=== PATIENT | female | born 1990 | race Caucasian/White ===

== ENCOUNTER 2021-09-17 10:15 | Emergency (ER) | payer OTHER ==
[2021-09-18 15:40] LABS: SARS-CoV-2 PCR by NAA Not Detected (NotDetected)
== END 2021-09-17 11:50 | disposition home or self-care (01) ==
LOC: CSHERS 10:15
DX: O99.513 Diseases of the respiratory system complicating pregnancy, third trimester (principal); J18.9 Pneumonia, unspecified organism; Z3A.31 31 weeks gestation of pregnancy; Z20.822 Contact with and (suspected) exposure to COVID-19
CPT/HCPCS: 99284; U0003; U0005

== ENCOUNTER 2021-10-26 09:26 | Outpatient (CLI) | payer OTHER ==
[2021-10-26 21:47] LABS: SARS-CoV-2 PCR by NAA Not Detected (NotDetected)
== END 2021-10-26 09:27 | disposition home or self-care (01) ==
LOC: CSHLAB 09:26
PROVIDERS: ATTEND Obstetrics & Gynecology
DX: Z20.822 Contact with and (suspected) exposure to COVID-19 (principal)
CPT/HCPCS: U0003; U0005

== ENCOUNTER 2021-10-26 10:48 | Inpatient (IN) | payer OTHER ==
[2021-10-26] MEDS ORDERED: Lactated Ringer's 1,000 ML IV SCH (12:30)
[2021-10-26] MEDS ORDERED: Ondansetron PF 4 MG/2 ML Vial IVP PRN (12:30)
[2021-10-26] MEDS ORDERED: Promethazine HCl 25 MG/ML VIAL IM PRN (12:30)
[2021-10-26] MEDS ORDERED: Zolpidem Tartrate 5 MG TAB PO PRN (12:30)
[2021-10-26] MEDS ORDERED: Docusate 100 MG CAP PO PRN (12:30)
[2021-10-26] MEDS ORDERED: hydrALAZINE 20 MG/ML VIAL SLOW IVP PRN (12:30)
[2021-10-26] MEDS ORDERED: Misoprostol 200 MCG TAB PR PRN (12:30)
[2021-10-26] MEDS ORDERED: Lidocaine 1% (PF) 30 ML VIAL SC PRN (12:30)
[2021-10-26] MEDS ORDERED: Diphenoxylate HCl/Atropine Tablet PO PRN ×2 (12:30)
[2021-10-26] MEDS ORDERED: Methylergonovine 0.2 MG/ML VIAL IM PRN (12:30)
[2021-10-26] MEDS ORDERED: HYDROcodone/Acetaminophen 5/325 mg Tablet PO PRN (12:30)
[2021-10-26] MEDS ORDERED: Carboprost 250 MCG/ML AMP IM PRN (12:30)
[2021-10-26] MEDS ORDERED: Ibuprofen 800 MG TAB PO PRN (12:30)
[2021-10-26] MEDS ORDERED: NS w/ Oxytocin 30 units 500 ML IV SCH ×2 (12:30)
[2021-10-26] MEDS ORDERED: Acetaminophen 500 MG TAB PO PRN (12:30)
[2021-10-26] MEDS: Misoprostol 200 MCG TAB PO PRN ×2 (13:13→17:17)
[2021-10-26 13:36] LABS: Hemoglobin 12.6 g/dL (12.0-15.5); Mean Corpuscular HGB CONC 33.6 g/dL (32.0-36.0); Mean Corpuscular Hemoglobin 28.9 pg (27.0-33.0); Mean Platelet Volume 11.4 fl (7.4-10.4); Platelet Count 224 10x3/uL (150-450); RBC Distribution Width 13.7 % (11.5-14.5); Red Blood Cell (RBC) Count 4.36 10x6/uL (3.90-5.03); White Blood Cell (WBC) Count 11.4 10x3/uL (3.5-10.5)
[2021-10-26 14:14] LABS: Hep B Surf Ag Non-Reactive S/CO (NonReactive)
[2021-10-26 14:16] LABS: Syphilis Antibody Nonreactive (Nonreactive); Syphilis Antibody Index 0.03 S/CO (<1.00 Non-Reactive)
[2021-10-26 14:20] LABS: ALT (SGPT) 11 U/L (8-55); AST (SGOT) 15 U/L (5-34); Albumin 3.6 g/dL (3.5-5.0); Alkaline Phosphatase 146 U/L (40-110); Anion Gap 16 mmol/L (10-20); BUN (Urea Nitrogen) 9 mg/dL (7.0-18.7); Bilirubin, Total 0.2 mg/dL (0.2-1.2); Calc. Creatinine Clearance 0 mL/min (70-130); Calcium 9.2 mg/dL (7.8-10.44); Carbon Dioxide 21 mmol/L (22-29); Chloride 108 mmol/L (98-107); Globulin 2.9 g/dL (2.4-3.5); Glucose 67 mg/dL (70-105); Potassium 4.5 mmol/L (3.5-5.1); Protein, Total 6.5 g/dL (6.0-8.3); Sodium 140 mmol/L (136-145)
[2021-10-26 14:23] LABS: HBSAg Index 0.18 S/CO (0-0.99)
[2021-10-26 14:26] VITALS: BMI 39.2
[2021-10-26] MEDS ORDERED: Labetalol HCl 100 MG TAB PO SCH (20:00)
[2021-10-26] MEDS ORDERED: Misoprostol 100 MCG TAB ONE (21:36)
[2021-10-26] MEDS: Butorphanol Tartrate 1 MG/ML VIAL SLOW IVP PRN (23:30)
[2021-10-27] MEDS: Butorphanol Tartrate 1 MG/ML VIAL SLOW IVP PRN (01:42)
[2021-10-27] MEDS ORDERED: Fentanyl 2 mcg/Bup 0.1% Cadd 100 ML ONE (02:00)
[2021-10-27] MEDS ORDERED: Ondansetron PF 4 MG/2 ML Vial ONE (02:09)
[2021-10-27] MEDS ORDERED: Lactated Ringer's 500 ML IV PRN (02:44)
[2021-10-27] MEDS ORDERED: Promethazine HCl 25 MG/ML VIAL IM PRN ×2 (02:44→17:15)
[2021-10-27] MEDS ORDERED: Hydrocerin (Eucerin) Cream 120 gm Jar TOP PRN (02:44)
[2021-10-27] MEDS ORDERED: ePHEDrine Sulfate 50 MG/10 ML VIAL SLOW IVP PRN (02:44)
[2021-10-27] MEDS ORDERED: Acetaminophen 325 MG TAB PO PRN (02:44)
[2021-10-27] MEDS ORDERED: Ondansetron PF 4 MG/2 ML Vial IVP PRN ×3 (02:44→17:15)
[2021-10-27] MEDS ORDERED: Naloxone HCl 0.4 mg/ml Vial IVP PRN ×2 (02:44)
[2021-10-27] MEDS ORDERED: diphenhydrAMINE 50 MG/ML VIAL IVP PRN (02:44)
[2021-10-27] MEDS ORDERED: Fentanyl 2 mcg/Bupivacaine 0.1% Cassette 100 ML EPIDURAL SCH (02:45)
[2021-10-27] MEDS ORDERED: Communication Order-Pharmacy FS SCH (02:45)
[2021-10-27] MEDS ORDERED: Labetalol HCl 100 MG TAB PO SCH (09:00)
[2021-10-27] MEDS ORDERED: Mineral Oil ENEMA ONE (13:09)
[2021-10-27] MEDS ORDERED: Mineral Oil ENEMA PR SCH (14:00)
[2021-10-27] MEDS ORDERED: ceFAZolin 2 GM/Dextrose 50 ML IVPB ONE (14:01)
[2021-10-27] MEDS ORDERED: Zolpidem Tartrate 5 MG TAB PO PRN (17:15)
[2021-10-27] MEDS ORDERED: Benzocaine-Menthol 82.5 ML CAN TOP PRN (17:15)
[2021-10-27] MEDS ORDERED: Misoprostol 200 MCG TAB VAG PRN (17:15)
[2021-10-27] MEDS ORDERED: Lanolin Ointment 7 GM TUBE TOP PRN (17:15)
[2021-10-27] MEDS ORDERED: hydrALAZINE 20 MG/ML VIAL SLOW IVP PRN (17:15)
[2021-10-27] MEDS ORDERED: NS w/ Oxytocin 30 units 500 ML IV SCH (17:15)
[2021-10-27] MEDS ORDERED: HYDROcodone/Acetaminophen 5/325 mg Tablet PO PRN (17:15)
[2021-10-27] MEDS ORDERED: Milk Of Magnesia 30 ML UDCUP PO PRN (17:15)
[2021-10-27] MEDS ORDERED: Bisacodyl 10 MG SUPP PR PRN (17:15)
[2021-10-27] MEDS ORDERED: Ferrous Sulfate 325 MG TAB PO SCH (18:00)
[2021-10-27] MEDS ORDERED: Docusate 100 MG CAP PO SCH (21:00)
[2021-10-27] MEDS ORDERED: Ibuprofen 800 MG TAB PO SCH (22:00)
[2021-10-28] MEDS ORDERED: Ferrous Sulfate 325 MG TAB PO SCH (08:00)
[2021-10-28] MEDS ORDERED: Boostrix 0.5 ML (Tdap) VIAL IM ONE (17:15)
[2021-10-28] MEDS ORDERED: Measles/Mumps/Rubella 10 MCG/0.5 ML VIAL SC ONE (17:15)
[2021-10-28] MEDS ORDERED: Varicella virus, LIVE 0.5 ML VIAL SC ONE (17:15)
== END 2021-10-27 18:40 | disposition home or self-care (01) | DRG 807 ==
LOC: CSHLD/OP 10:48 → CSHLD 15:06
PROVIDERS: ADMIT Obstetrics & Gynecology; ATTEND Obstetrics & Gynecology
PROC: 10E0XZZ Delivery of Products of Conception, External Approach (ICD-10-PCS; principal; 2021-10-27)
PROC: 3E0P7VZ Introduction of Hormone into Female Reproductive, Via Natural or Artificial Opening (ICD-10-PCS; 2021-10-27)
DX: O36.4XX0 Maternal care for intrauterine death, not applicable or unspecified (principal); Z37.1 Single stillbirth; Z3A.36 36 weeks gestation of pregnancy; O69.2XX0 Labor and delivery complicated by other cord entanglement, with compression, not applicable or unspecified
CPT/HCPCS: 36415; 51702; 76815; 80053; 85027; 86780; 86850; 86900; 86901; 87340; 88307; J0595; J2405; U0003; U0005